=== PATIENT | female | born 2005 | race Caucasian/White ===

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

== ENCOUNTER 2025-08-26 16:40 | Outpatient (CLI) | payer BC, SELFPAY ==
--- NOTE | ~2025-08-26 | XR_ITS ---
EXAMINATION: XR forearm RT 2V, 08/26/2025 16:52 [employer] HISTORY: Fall, proximal lateral Rt. elbow pain/ swelling COMPARISON: No comparisons available. Findings: No acute fracture or malalignment. No significant degenerative changes. Soft tissues unremarkable. Impression: No acute fracture or malalignment. Reviewed, dictated and finalized at location P. OGRAPHER APPRENTICE Impression: No acute fracture or malalignment.
== END 2025-08-26 16:41 | disposition home or self-care (01) ==
LOC: CHSIMG 16:48
PROVIDERS: PCP Nurse Practitioner; Visit Provider Nurse Practitioner
DX: S59.911A Unspecified injury of right forearm, initial encounter (principal)
CPT/HCPCS: 73090